=== PATIENT | female | born 1995 | race Two or more races ===

== ENCOUNTER → 2025-10-26 14:16 | Outpatient (CLI) | payer OTHER | END | disposition home or self-care (01) | LOC: PRENATAL 14:16 | PROVIDERS: ATTEND Obstetrics & Gynecology Maternal & Fetal Medicine | DX: O44.03 Complete placenta previa NOS or without hemorrhage, third trimester (principal); O36.8130 Decreased fetal movements, third trimester, not applicable or unspecified; Z3A.30 30 weeks gestation of pregnancy ==